=== PATIENT | male | born 1960 | race Caucasian/White ===

== ENCOUNTER 2018-06-01 22:48 | Emergency (ER) | payer MEDICAID ==
[~2018-06-01] VITALS: Ht 185.4 cm; Wt 109.0 kg
[2018-06-02 13:08] VITALS: BP 129/85
== END 2018-06-02 13:21 | disposition home or self-care (01) ==
LOC: ER 22:48
DX: S90.31XA Contusion of right foot, initial encounter (principal); M25.572 Pain in left ankle and joints of left foot; K46.9 Unspecified abdominal hernia without obstruction or gangrene; Z59.0 Homelessness; W18.31XA Fall on same level due to stepping on an object, initial encounter; Y93.89 Activity, other specified; Y92.89 Other specified places as the place of occurrence of the external cause; Y99.8 Other external cause status
CPT/HCPCS: 73610; 99283